=== PATIENT | male | born 1955 | race Caucasian/White ===

== ENCOUNTER → 2017-07-28 | Outpatient (CLI) | payer OTHER ==
--- NOTE | 2017-07-28 21:32 | MR ---
EXAMINATION TYPE: MR lumbar spine wo/w con DATE OF EXAM: 07/28/2017 COMPARISON: NONE HISTORY: Lumbar region radiculopathy per order. History of previous surgery 1995 with low back pain for 5 years causing pain into left buttocks per patient. TECHNIQUE: Multiplanar, multisequence images of the lumbar spine is performed without and with IV contrast, util izing 10 mL intravenous Gadavist FINDINGS: Sagittal images of the lumbar spine show vertebral body heights to appear satisfactory. The re is loss of normal lumbar lordosis. There is artifact from posterior fusion hardware L2-L5 levels b ilaterally. Moderate disc space narrowing at these levels is present. There is advanced disc space na rrowing with moderate anterior spurring L1-L2 level. Posterior disc herniation is seen at L1-L2 level on sagittal images. The conus medullaris is normal in position and signal extending superior L1 lev el. The bone marrow signal intensity is within normal limits. No suspicious postcontrast enhancement is seen. Moderate multilevel anterior spurring is present. Axial images at the T12-L1 level shows mild to moderate right-sided facet degenerative change and lig amentum flavum hypertrophy but spinal canal is preserved and the bilateral neural foramina are patent . Axial images at L1-L2 level show moderate right greater than left facet degenerative change and ligam entum flavum hypertrophy with effacement of the posterior lateral thecal sac. There is artifact from posterior fusion hardware. There is moderate broad disc bulge mildly effacing the anterior thecal sac . There is mild bilateral inferior neural foraminal narrowing. Axial images at L2-L3 level show artifact from posterior fusion hardware making evaluation suboptimal . There are bilateral laminectomy defects and spinous process resection. Spinal canal is preserved. B ilateral neural foramina show some right-sided neural foraminal narrowing on the sagittal images. Lef t-sided neural foramen is patent. Axial images at L3-L4 level show artifact from posterior fusion hardware. There are bilateral laminec chula defects and spinous process resection. Spinal canal is preserved. There is suboptimal evaluation of foramina at this level. Axial images at L4-L5 level show artifact from posterior fusion hardware and likely artificial disc m aterial. There are bilateral laminectomy defects and spinous process resection. Left-sided neural for melissa is felt patent. Right side is degraded by artifact but likely has some mild to moderate narrow ing. Axial images at L5-S1 level show moderate to advanced facet degenerative changes. Spinal canal is pre served. Left-sided neural foramina is moderately narrowed. Right-sided foramen is patent. No suspicious retroperitoneal findings are seen. IMPRESSION: There is straightening of lumbar spine. Postsurgical changes L2-L5 levels are seen, artif act at these levels makes evaluation suboptimal. Multilevel degenerative changes are noted most promi nent at L1-L2 level as detailed above.
== END | disposition home or self-care (01) ==
LOC: RADMRIMAIN 17:38
PROVIDERS: ATTEND Specialist
DX: M47.26 Other spondylosis with radiculopathy, lumbar region (principal); Z98.890 Other specified postprocedural states
CPT/HCPCS: 82565; 72158; 36415; A9581

== ENCOUNTER → 2017-08-05 | Outpatient (CLI) | payer OTHER ==
[2017-08-04 14:07] VITALS: BMI 31.6
--- NOTE | 2017-08-05 15:29 | P.PN ---
Progress Note - Text Progress Note Date: 08/05/17 Chief complaint: Low back pain, left leg pain History of present illness: This very pleasant 62-year-old gentleman with a history of previous lumbar fusion from L2 to L5 who was referred to our clinic by the neurosurgery Department at [facility] or management. He denies any weakness in his legs he denies falling. He denies bowel or bladder dysfunction. He does report having some numbness in his foot and in his leg. This has been chronic since his surgery. Review of systems: 13-point review of systems is also negative for chest pain, shortness of breath, changes in vision, changes in hearing, new onset weakness, abdominal pain, diarrhea, extreme fatigue, malaise, fever, skin changes, homicidal or suicidal ideation, or bowel or bladder incontinence. Vital Signs: Reviewed in EMR Gen: WDWN, AAOx3, NAD HEENT: NTNC Pulm: resp unlabored Abd: soft, NT, ND Straight leg raise is positive on the left side, negative on the right. He is tender to palpation over the lumbar spine worse on the mid lumbar region on the left side. Facet loading maneuvers are positive bilaterally. Neuro: Decreased sensation in the L5 dermatome on the left side. Strength is normal bilaterally. Imaging: Reviewed in EMR Assessment: * Plan: 1. Medication management: Patient will continue taking his anti-inflammatory medication as he previously was. I would not advocate the use of opiates in this clinical presentation 2. Interventional procedures: I believe the patient would benefit from a lumbar epidural steroid injection at the L1-2 interspace. If this is not helpful for him, we can consider transforaminal epidural steroid injections. Specifically, I would look at a transforaminal epidural steroid injection at the left L 5 location 3. Counseling: The patient does not smoke however he was counseled on weight loss and advised to follow-up with his primary care physician. No additional testing was ordered today. Disposition: Patient was scheduled for a lumbar epidural steroid injection PQRS measures: 1-Patient's medications are documented in the chart. 2-Tobacco use is positive, counseling given 3-Patient has not had a pneumococcal vaccine. 4-Advanced care planning discussed, patient unable to give. 6-Pain positive, follow-up visit or procedure scheduled 7-Patient's blood pressure measured and documented, and WNL. 8-Patient's weight was measured, and body mass index ABOVE the normal limits, and counseling was done. Patient instructed to follow up with PCP. 9-Patient WAS NOT identified as an unhealthy alcohol user.
[2017-08-05 15:31] VITALS: BP 165/82; PULSE 100; RESP 18; TEMP 98
== END | disposition home or self-care (01) ==
LOC: PNWHC3 13:53
PROVIDERS: ATTEND Pain Medicine Pain Medicine
DX: M54.5 Low back pain (principal); M79.605 Pain in left leg
CPT/HCPCS: 99211

== ENCOUNTER → 2017-09-16 | Day surgery (SDC) | payer OTHER ==
[2017-09-11 10:08] VITALS: BMI 33.9
[~2017-09-16] MED LIST: IV FLUID CONTINUATION 1,000 ML IV ONE; LACTATED RINGERS 1,000 ML IV SCH; LIDOCAINE 1% 20 ML VIAL (10MG/ML) FOR IV START INTRADERMA ONE
[2017-09-16 08:54] VITALS: RESP 16; TEMP 97.3
--- NOTE | 2017-09-16 10:55 | P.PCN ---
Date of Procedure: 09/16/17 Surgeon: Phil Gonzalez Pathology: none sent Condition: stable Disposition: PACU Description of Procedure: PREOPERATIVE DIAGNOSIS: Lumbar post laminectomy syndrome. POSTOPERATIVE DIAGNOSIS: Lumbar post laminectomy syndrome. PROCEDURE: 1. Caudal epidural steroid injection under fluoroscopic guidance, aborted 2. Caudal epidurogram. ANESTHESIA: Local with 1% lidocaine; IV sedation EBL: None. PROCEDURE INDICATION: This is a patient with postlaminectomy syndrome with uncontrolled pain who presents for caudal MARLA today. Patient was originally scheduled for L1-L2 MARLA but indicated that he had substantially more pain in the L5-S1 distribution on the left, and thus the procedure was changed to caudal MARLA No use of blood thinners. PROCEDURE DESCRIPTION: The patient was seen and identified in the preoperative area. Risks, benefits, complications, and alternatives were discussed with the patient including but not limited to bleeding, infection, nerve damage, incomplete pain relief, and allergic reactions to medications. The patient agreed to proceed with the procedure and signed the consent. IV was started, and vital signs were stable. Patient was taken to the OR and time out was completed. The patient was placed in the prone position on procedure table and a pillow was placed under the abdomen to reduce lumbar lordosis. The lumbosacral area was prepped and draped in the usual sterile fashion. Vital signs were closely monitored during the procedure. Using lateral fluoroscopy the anterior-posterior plates of the sacrum were identified and the skin and deeper tissues corresponding into sacrococcygeal ligament were anesthetized using approximately 3 mL of 1% lidocaine. Then under fluoroscopy, a 3-1/2-inch 20-gauge Tuohy epidural needle was guided through the sacrococcygeal ligament, and into the epidural space. Aspiration was positive for blood. I attempted to reposition the needle several times, and each aspiration was positive for blood. I then removed the Tuohy needle and accessed the epidural space at the level above. Aspiration was again positive for blood despite multiple attempts at repositioning. I then went one level below and accessed the epidural space, this time with a 22g 3.5-inch spinal needle. Aspiration was again positive for blood; I injected contrast 0.5 ml at each level to confirm, and each time the contrast disappeared. As multiple aspirations at three different areas in the epidural space were positive for blood, it became clear that I could not safely inject any medication that would assist with this patient's pain, and thus I aborted the procedure. The needle was removed intact, skin was cleansed, and bandage was applied. COMPLICATIONS: None. COMMENTS: DISPOSITION / PLANS: The patient was placed in a supine position and transferred to the recovery area in a stable condition for observation and was discharged from the recovery room after meeting discharge criteria. Home discharge instructions given to the patient by the staff. The patient was reexamined prior to discharge. The patient will schedule a follow up in the clinic in 2-3 weeks for further evaluation. Patient was also warned about signs and symptoms of epidural hematoma, and he verbalized understanding and agreement to come to the ER if he had any new-onset fever, bowel/bladder incontinence, or worsening or new-onset weakness.
[2017-09-16 11:19] VITALS: BP 120/73; PULSE 80
--- NOTE | 2017-09-16 12:00 | FL ---
Fluoroscopy HISTORY: Pain 39 seconds fluoroscopy time supplied to the referring clinician. 2 intraoperative C-arm images docum ent the procedure. See dictated report from anesthesia.
== END | disposition home or self-care (01) ==
LOC: ORPAIN 08:05
PROVIDERS: ATTEND Anesthesiology
DX: M96.1 Postlaminectomy syndrome, not elsewhere classified (principal)
CPT/HCPCS: 62323; J2250; J1030; J3010; Q9966; 99152; 99153